=== PATIENT | female | born 1985 | race Caucasian/White ===

== ENCOUNTER 2019-01-01 01:46 | Emergency (ER) | payer OTHER ==
[2019-01-01] MEDS: LORAZEPAM 2 MG INJ IM (04:36)
[2019-01-01 05:27] LABS: AMPHETAMINE/METHAMPHETAMINE Negative (NEGATIVE); BARBITURATES Negative (NEGATIVE); BENZODIAZEPINES Negative (NEGATIVE); CANNABINOIDS Negative (NEGATIVE); COCAINE Negative (NEGATIVE); OPIATES Negative (NEGATIVE)
== END 2019-01-01 05:55 | disposition home or self-care (01) ==
LOC: FTE 01:46
DX: F41.9 Anxiety disorder, unspecified (principal)
CPT/HCPCS: 80307; 93005; 96372; 99284-25